=== PATIENT | male | born 1965 | race Two or more races ===

== ENCOUNTER 2018-10-03 06:26 | Emergency (ER) | payer OTHER ==
[~2018-10-03] VITALS: Ht 180.3 cm; Wt 84.8 kg
[2018-10-03 06:30] VITALS: Ht 180.3 cm; Wt 84.8 kg
[2018-10-03 06:56] VITALS: BP 144/82
== END 2018-10-03 06:56 | disposition home or self-care (01) ==
LOC: ED 06:26
DX: K04.7 Periapical abscess without sinus (principal)